=== PATIENT | female | born 1945 | race Caucasian/White ===

== ENCOUNTER 2019-03-15 09:08 | Observation (INO) | payer MEDICARE ==
--- NOTE | 2019-03-15 09:42 | ED ---
Neurological HPI - HPI Summary HPI Summary: This patient is a 74 year old F presenting to [facility] accompanied by her daughter and son-in-law with a chief complaint of confusion since 4 days ago. Patient reports dehydration, diarrhea and chills. Patient denies vomiting, fever, CP, SOB, blurry vision, MARCUM, or abd pain. The patient went to [place] 6 days ago and was given antibiotics for a UTI. Her daughter states that the medication was making her disoriented and they realized they gave her the wrong drug. She began taking her new antibiotic two days ago. She did have a MARCUM but it is resolved in the ED. The patient knows she is at the hospital, knows the president, knows the month, and knows her family. The patient had a fall on the way to the doctor about 3 weeks ago, she did not have any testing done at the time, and she denies head injury. PMHX Pacemaker. No PMHx CVA. Vitals in the room: HR 71 bpm, BP 121/67. - History of Current Complaint Chief Complaint: EDAltMentalStatus Stated Complaint: DHYDRATED,DISORIENTED PER PT DAUGHTER Time Seen by Provider: 03/15/19 09:32 Hx Obtained From: Patient, Family/Blood And Plasma Laboratory Assistant - daughter Onset/Duration: Sudden Onset, Started days ago Timing: Constant Pain Intensity: 0 Character: Confusion Associated Signs and Symptoms: Positive: Confusion, Diarrhea - Allergy/Home Medications Allergies/Adverse Reactions: Allergies Allergy/AdvReac Type Severity Reaction Status Date / Time sulfamethoxazole Allergy Swelling Verified 03/15/19 09:49 [From Bactrim] Of Face,Lips,& Throat trimethoprim [From Bactrim] Allergy Swelling Verified 03/15/19 09:49 Of Face,Lips,& Throat Home Medications: Home Medications Rosuvastatin Calcium 10 mg PO DAILY 03/15/19 [History Confirmed 03/15/19] PMH/Surg Hx/FS Hx/Imm Hx Endocrine/Hematology History: Reports: Hx Diabetes Cardiovascular History: Reports: Hx Hypertension - Cancer History Cancer Type, Location and Year: OVARIAN CANCER - Immunization History Date of Tetanus Vaccine: UTD Infectious Disease History: No Infectious Disease History: Denies: Traveled Outside the [place] in Last 30 Days - Family History Known Family History: Positive: Cardiac Disease - Social History Alcohol Use: None Substance Use Type: Reports: None Smoking Status (MU): Never Smoked Tobacco Review of Systems Positive: Chills. Negative: Fever Negative: Blurred Vision ENT: Other - dehydration Negative: Chest Pain Negative: Shortness Of Breath Positive: Diarrhea. Negative: Abdominal Pain, Vomiting Neurological: Other - confusion Negative: Headache All Other Systems Reviewed And Are Negative: Yes Physical Exam - Summary Physical Exam Summary: GENERAL: Patient is a well-developed and nourished female who is lying comfortable in the stretcher. Patient is not in any acute respiratory distress. HEAD AND FACE: Normocephalic EYES: PERRLA, EOMI x 2. EARS: Hearing grossly intact. MOUTH: Oropharynx within normal limits. NECK: Supple, trachea is midline, no adenopathy, no JVD, no carotid bruit. CHEST: Symmetric, no tenderness at palpation LUNGS: Clear to auscultation bilaterally. No wheezing or crackles. CVS: Regular rate and rhythm, S1 and S2 present, no murmurs or gallops appreciated. ABDOMEN: Soft, non-tender. Bowel sounds are normal. No abdominal abnormal pulsations. EXTREMITIES: Full ROM in all major joints, no edema, no cyanosis or clubbing. NEURO: Alert and oriented x 2, due to the amount of time it took her to answer question. No acute neurological deficits. Speech is normal and follows commands. SKIN: Dry and warm GCS: 14, altered mental status Triage Information Reviewed: Yes Vital Signs On Initial Exam: Initial Vitals Temp Pulse Resp BP Pulse Ox 97.9 F 81 18 110/73 100 03/15/19 09:15 03/15/19 09:15 03/15/19 09:15 03/15/19 09:15 03/15/19 09:15 Vital Signs Reviewed: Yes Diagnostics - Vital Signs Vital Signs Temp Pulse Resp BP Pulse Ox 03/15/19 09:15 97.9 F 81 18 110/73 100 - Laboratory Result Diagrams: 03/15/19 10:18 03/15/19 10:18 Lab Statement: Any lab studies that have been ordered have been reviewed, and results considered in the medical decision making process. - CT Brain CT Interpretation Completed By: Radiologist Summary of CT Findings: 1. NO EVIDENCE FOR ACUTE INTRACRANIAL ABNORMALITY. 2. FINDINGS SUGGESTIVE OF MILD TO MODERATE CHRONIC SMALL VESSEL ISCHEMIC CHANGES. ED physician has reviewed this report Course/Dx - Course Course Of Treatment: This patient is a 74 year old F presenting to [facility] accompanied by her daughter and son-in-law with a chief complaint of confusion since 4 days ago. Patient reports dehydration, diarrhea and chills. Patient denies vomiting, fever, CP, SOB, blurry vision, MARCUM, or abd pain. CT brain reveals, per radiologist, 1. NO EVIDENCE FOR ACUTE INTRACRANIAL ABNORMALITY. 2. FINDINGS SUGGESTIVE OF MILD TO MODERATE CHRONIC SMALL VESSEL ISCHEMIC CHANGES. ED physician has reviewed this radiology report. Bloodwork/UA obtained. In the ED course the patient was given IV fluids, Ondansetron, Potassium Chloride, and Ceftriaxone. We discussed patient care with davonte Kumar, and they recommended admission. - Diagnoses Provider Diagnoses: UTI (urinary tract infection), ROSIE (acute kidney injury), Altered mental status - Physician Notifications Discussed Care Of Patient With: Iron Saucedo Time Discussed With Above Provider: 11:47 Instructed by Provider To: Admit As Inpatient Discharge - Sign-Out/Discharge Documenting (check all that apply): Patient Departure - admission Patient Received Moderate/Deep Sedation with Procedure: No - Discharge Plan Condition: Fair Disposition: ADMITTED TO [facility] - Billing Disposition and Condition Condition: FAIR Disposition: Admitted to [facility] - Attestation Statements Document Initiated by Scribe: Yes Documenting Scribe: Rony Tolentino Provider For Whom Chelle is Documenting (Include Credential): Selma Vickers MD Scribe Attestation: Rony Gary, scribed for Selma Vickers MD on 03/15/19 at 1520. Scribe Documentation Reviewed: Yes Provider Attestation: The documentation as recorded by the Rony pollock accurately reflects the service I personally performed and the decisions made by , Selma Vickers MD Status of Scribe Document: Viewed
[2019-03-15] MEDS ORDERED: NS 0.9% 1000 ML** 1,000 ML IV ONE ×2 (09:47→11:22)
[2019-03-15] MEDS ORDERED: Ondansetron INJ* 2 MG/ML VIAL IV ONE (09:47)
[2019-03-15] MEDS ORDERED: cefTRIAXone(*) 1 GM in NS 0.9% 50 ML* 50 ML IVPB ONE (09:48)
[2019-03-15 10:27] LABS: ABS Basophils 0 10^3/ul (0-0.2); ABS Eosinophils 0 10^3/ul (0-0.6); ABS Lymphocytes 1.7 10^3/ul (1.0-4.8); ABS Monocytes 0.6 10^3/ul (0-0.8); ABS Neutrophils 3.3 10^3/ul (1.5-7.7); ABS Nucleated RBC 0 10^3/ul; Eosinophil % 0.7 %; Hematocrit 40 % (33-41); Hemoglobin 13.9 g/dL (12.0-16.0); Lymphocyte % 30.3 %; Mean Corpuscular HGB Conc 35 g/dL (31-36); Mean Corpuscular Hemoglobin 31 pg (27-31); Mean Corpuscular Volume 89 fL (80-97); Nucleated Red Blood Cells % 0.1; Platelet Count 167 10^3/uL (150-450); Red Blood Count 4.44 10^6 /uL (3.70-4.87); Red Cell Distribution Width 14 % (10.5-15); White Blood Count 5.7 10^3/uL (3.5-10.8)
[2019-03-15 10:45] LABS: Albumin 4.3 g/dL (3.2-5.2); Albumin/Globulin Ratio 1.2 (1-3); Calcium 9.7 mg/dL (8.6-10.3); EGFR African American 46.5 (>60); EGFR Non-African American 38.5 (>60); Globulin 3.5 g/dL (2-4); Potassium 3.3 mmol/L (3.5-5.0); Total Bilirubin 0.9 mg/dL (0.2-1.0); Total Protein 7.8 g/dL (6.4-8.9)
[2019-03-15] MEDS ORDERED: Potassium Chlor TAB* 20 MEQ TAB.ER PO ONE (11:33)
[2019-03-15 12:19] LABS: Urine Appearance Cloudy; Urine Bacteria 1+ (Absent); Urine Bilirubin Negative (Negative); Urine Blood 1+ (Negative); Urine Color Yellow; Urine Glucose Negative (Negative); Urine Ketones Negative (Negative); Urine Nitrite Negative (Negative); Urine Protein 2+(100 mg/dL) (Negative); Urine Red Blood Cell Trace(0-2/hpf) (Absent); Urine Specific Gravity 1.014 (1.010-1.030); Urine Squamous Epithelial Cell Present (Absent); Urine Urobilinogen Negative (Negative); Urine White Blood Cell Trace(0-5/hpf) (Absent)
[2019-03-15] MEDS ORDERED: Acetaminophen TAB* 325 MG PO PRN (13:18)
[2019-03-15] MEDS ORDERED: Dextrose 50% Syringe 50 ML* 25 GM/50 ML SYRINGE IV PUSH PRN (13:22)
[2019-03-15 13:37] LABS: Magnesium 1.7 mg/dL (1.9-2.7)
--- NOTE | 2019-03-15 15:11 | HP ---
HISTORY AND PHYSICAL: DATE OF ADMISSION: 03/15/19 PROVIDER: Caterina Asher NP. ATTENDING PHYSICIAN: Dr. Saucedo * (report dictated by Caterina Asher NP). PRIMARY CARE PROVIDER: Primary care doctor in [place]. CHIEF COMPLAINT: Weakness, confusion, dehydration. HISTORY OF PRESENT ILLNESS: Ms. Caceres is a 74-year-old female with a past medical history of coronary artery disease three-vessel, non-insulin dependent type 2 diabetes, hypertension, status post pacemaker placement, GERD, who was brought to the emergency department today by her daughter and son-in-law for concern for confusion, weakness, and dehydration. Ms. Caceres was recently diagnosed 6 days ago with urinary tract infection at [facility]. Three to four days prior to that, she reports she had a "GI bug" in which she had developed acute nausea, vomiting, diarrhea for 3 to 4 days, then presenting to [facility] this past Saturday, 6 days ago. She was diagnosed with urinary tract infection and a GI bug and was discharged home on ciprofloxacin. The patient and daughter report that the next day [facility] called her and said that she was given the wrong antibiotic and they sent in a prescription for Macrobid; however, the patient reports that she continued the ciprofloxacin for 4 days, only currently now having 2 to 3 doses of the Macrobid. She was found to have E. coli urinary tract infection on 03/09, which was resistant to ciprofloxacin and sensitive to Macrobid. The patient and daughter report that she has had increased confusion and weakness over the past 4 to 5 days, and this morning the patient continued to be confused as well as reporting little appetite and not a lot of fluid intake, and therefore she was driven to [facility] for further evaluation by her family. In the emergency department, the patient received 2 L of normal saline and 1 g of ceftriaxone IV. On my evaluation, the patient reports that she does feel much better; however, she continues to have generalized weakness. Per her family at the bedside, they also report that she is acting more like herself. The patient will be admitted overnight for continued IV antibiotics and IV fluids. She was also found to have acute kidney injury, thought to be secondary to dehydration. PAST MEDICAL HISTORY: 1. Coronary artery disease three-vessel with a history of CABG, status post pacemaker. 2. Non-insulin dependent type 2 diabetes. 3. Hypertension. 4. GERD. 5. Depression. 6. Dyslipidemia. 7. Moderate left ventricular dysfunction secondary to ischemic heart disease. HOME MEDICATIONS: 1. Metformin 500 mg p.o. b.i.d. 2. CoQ10 100 mg p.o. daily. 3. Spironolactone 12.5 mg p.o. daily. 4. Rosuvastatin 10 mg p.o. daily. 5. Paxil 20 mg p.o. daily. 6. Prilosec 20 mg p.o. daily. 7. [place]-3 fatty acids 1200 mg p.o. daily. 8. Losartan 25 mg p.o. daily. 9. Coreg 12.5 mg p.o. b.i.d. 10. Calcium carbonate with vitamin D3 one tab p.o. b.i.d. 11. Aspirin 81 mg p.o. daily. ALLERGIES: SULFAMETHOXAZOLE and TRIMETHOPRIM. FAMILY HISTORY: Reviewed and noncontributory. SOCIAL HISTORY: The patient currently lives in her own home, in which her daughter, grandson, and the grandson's girlfriend live with her. She lives in a trailer. She reports when she was in her 20s, she smoked for 1 year; however , denies a history of tobacco abuse; however, she is exposed to secondhand smoke in her home. Denies alcohol use. She lists her daughter Lana Keyes as her healthcare proxy. Her number is [phone]. REVIEW OF SYSTEMS: A 14-point review of systems was performed. All the pertinent positives and negatives are mentioned in the history of present illness. Otherwise are negative. PHYSICAL EXAMINATION GENERAL: A 74-year-old female, alert and oriented x3, in no acute distress. Family at bedside. VITAL SIGNS: Temperature 97.9, heart rate 60, respirations 16, O2 sat 99% on 2 L nasal cannula, and blood pressure 131/61. HEENT: Head is normocephalic, atraumatic. Pupils are equal and reactive to light. Oropharynx is clear. Multiple missing teeth. Dry mucous membranes. NECK: Supple. No JVD. LUNGS: Clear to auscultation bilaterally. Good aeration throughout. HEART: S1, S2. Regular rate and rhythm. No lower extremity edema noted. ABDOMEN: Soft, nontender, nondistended. Normal bowel sounds throughout. No CVA tenderness. EXTREMITIES: Warm, pink, dry. No clubbing, cyanosis, or edema noted. NEUROLOGIC: Alert and oriented x3. No focal deficits noted. Cranial nerves II through XII are grossly intact. DIAGNOSTIC STUDIES/LABORATORY DATA: Sodium 137, potassium 3.3, chloride 112, carbon dioxide 15, anion gap 10, BUN 59, creatinine 1.31, glucose 157, lactic acid 1.0, calcium 9.7, total bilirubin 0.90, AST 22, ALT 16, alkaline phosphatase 68, ammonia 53, total protein 7.8, albumin 4.3. WBC 5.7, RBC 4.44, HGB , MCV 89, MCH 31, MCHC 35, RDW 14, platelet count 167. Brain CT, impression: "No evidence for acute intracranial abnormality. Findings suggestive of [id number] chronic small vessel ischemic changes." ASSESSMENT AND PLAN: Ms. Caceres is a 74-year-old female with past medical history of coronary artery disease, status post coronary artery bypass graft, status post pacemaker, moderate left ventricular dysfunction secondary to ischemic heart disease, non-insulin dependent type 2 diabetes, hypertension, dyslipidemia, GERD, and obesity, who presents to the emergency department today with report of confusion, dehydration, and weakness. 1. Urinary tract infection. The patient's confusion is already improving after a dose of ceftriaxone and 2 L of fluid. I suspect the patient had a viral gastroenteritis starting around 03/05/19. She was diagnosed with urinary tract infection on 03/09/19 and was sent home on ciprofloxacin. It does seem around that time that she did get confused and it could be the ciprofloxacin versus untreated urinary tract infection. The patient has no signs of sepsis. She continues to have generalized weakness. We will continue ceftriaxone 1 g q.24 hours. Blood cultures have been sent. We will ask PT to evaluate the patient. 2. Acute renal failure. The patient's creatinine is 1.3. It appears to be above her baseline. Most likely, this is secondary to dehydration from the viral gastroenteritis and urinary tract infection. She was given 2 L of normal saline in the emergency department. We will repeat labs in the morning. The patient is drinking fluids. 3. Electrolyte abnormalities. The patient is found to have potassium at 3.3. She was given replacement in the emergency department. I will add on a magnesium level and repeat electrolytes in the morning. 4. History of coronary artery disease. Appears to be stable and asymptomatic. We will continue home medications of Coreg, losartan, aspirin, rosuvastatin. 5. Hypertension. Currently controlled. Continue home medications of losartan , Coreg, spironolactone. 6. Ogo-vawjneu-oiegssfat type 2 diabetes. Hold home metformin. Fingerstick blood glucose a.c. and h.s. with lispro sliding scale. 7. Depression. Continue Paxil. 8. Gastroesophageal reflux disease. Continue PPI. 9. DVT prophylaxis: Heparin subcutaneously. 10. Diet: Consistent carb. 11. Hospital status: Observation. 12. Code status: Full code. TIME SPENT: Approximately 60 minutes was spent on this admission. This case was discussed with Dr. Saucedo. CATERINA ASHER, COTTON TIER [id number]/CPS #: [id number] MARCIA
[2019-03-15] MEDS: Heparin VIAL(*) 5000 UNITS/ML VIAL (FIVE THOUSAND) SUBCUT SCH ×2 (16:30→22:52)
[2019-03-15] MEDS ORDERED: Magnesium Sulfate 2 GM IV* 2 GM/50 ML BAG IVPB ONE (16:30)
[2019-03-15] MEDS: Insulin LISPRO* 1 UNITS UNIT SUBCUT SCH ×2 (18:03→22:56)
[2019-03-15] MEDS: Carvedilol TAB* 6.25 MG PO SCH (22:53)
[2019-03-16] MEDS: Heparin VIAL(*) 5000 UNITS/ML VIAL (FIVE THOUSAND) SUBCUT SCH ×2 (06:40→14:16)
[2019-03-16 07:06] LABS: ABS Basophils 0 10^3/ul (0-0.2); ABS Eosinophils 0.1 10^3/ul (0-0.6); ABS Lymphocytes 1.7 10^3/ul (1.0-4.8); ABS Monocytes 0.5 10^3/ul (0-0.8); ABS Neutrophils 1.9 10^3/ul (1.5-7.7); ABS Nucleated RBC 0 10^3/ul; Eosinophil % 2.5 %; Hematocrit 37 % (33-41); Hemoglobin 13.1 g/dL (12.0-16.0); Magnesium 1.7 mg/dL (1.9-2.7); Mean Corpuscular HGB Conc 35 g/dL (31-36); Mean Corpuscular Hemoglobin 32 pg (27-31); Mean Corpuscular Volume 91 fL (80-97); Mean Platelet Volume 9.1 fL (7.4-10.4); Nucleated Red Blood Cells % 0.2; Platelet Count 154 10^3/uL (150-450); Potassium 3.3 mmol/L (3.5-5.0); Red Blood Count 4.06 10^6 /uL (3.70-4.87); Red Cell Distribution Width 13 % (10.5-15); White Blood Count 4.2 10^3/uL (3.5-10.8)
[2019-03-16 07:11] LABS: BUN/Creatinine Ratio 34.7 (8-20); EGFR African American 53.9 (>60); EGFR Non-African American 44.5 (>60)
[2019-03-16] MEDS: Insulin LISPRO* 1 UNITS UNIT SUBCUT SCH ×3 (07:56→16:39)
[2019-03-16] MEDS: Carvedilol TAB* 6.25 MG PO SCH (08:21)
[2019-03-16] MEDS ORDERED: Magnesium Sulfate 2 GM IV* 2 GM/50 ML BAG IVPB ONE (08:30)
[2019-03-16] MEDS ORDERED: cefTRIAXone(*) 1 GM in NS 0.9% 50 ML* 50 ML IVPB SCH (09:00)
[2019-03-16] MEDS ORDERED: Atorvastatin* 20 MG TAB PO SCH (09:00)
[2019-03-16] MEDS ORDERED: Pantoprazole TAB * 40 MG TAB PO SCH (09:00)
[2019-03-16] MEDS ORDERED: Spironolactone TAB* 25 MG PO SCH (09:00)
[2019-03-16] MEDS ORDERED: PARoxetine HCL TAB* 20 MG PO SCH (09:00)
[2019-03-16] MEDS ORDERED: Losartan TAB* 25 MG PO SCH (09:00)
[2019-03-16] MEDS ORDERED: Aspirin EC TAB* 81 MG TAB.EC PO SCH (09:00)
[2019-03-16] MEDS: KCL 20 MEQ/100 ML IVPREMIX* 20 MEQ/100 ML BAG IV SCH ×3 (10:55→18:20)
[2019-03-16 16:32] VITALS: BP 123/52
[2019-03-16 17:37] LABS: BUN/Creatinine Ratio 29.5 (8-20); Calcium 8.5 mg/dL (8.6-10.3); EGFR African American 51.9 (>60); EGFR Non-African American 42.9 (>60); Magnesium 2.1 mg/dL (1.9-2.7); Potassium 3.7 mmol/L (3.5-5.0)
--- NOTE | 2019-03-17 03:45 | DS ---
CC: Dr. Abhishek Francis * DISCHARGE SUMMARY: DATE OF ADMISSION: 03/15/19 DATE OF DISCHARGE: 03/16/19 PROVIDER: IRMA Kennedy. ATTENDING PHYSICIAN: Dr. Saucedo * (Dictated by IRMA Kennedy). PRIMARY CARE PROVIDER: Dr. Abhishek Francis. PRIMARY DIAGNOSIS: Urinary tract infection. SECONDARY DIAGNOSES: 1. Coronary artery disease. 2. Diabetes mellitus type 2. 3. Hypertension. 4. Gastroesophageal reflux disease. 5. Depression. 6. Dyslipidemia. 7. Left ventricular dysfunction secondary to ischemic heart disease. DIAGNOSTIC STUDIES: Brain CT on 03/15/19. Impression: 1. "No evidence for acute intracranial abnormality." 2. "Findings suggestive of vjcf-ah-cohqhmaf small vessel ischemic changes." PERTINENT LAB DATA: Urine culture on 03/15/19: No growth of clinically significant organisms. Lactic acid 1.0. White blood cell count 4.2. Potassium 3.3, 3.7 at discharge. Magnesium 1.7, 2.1 at discharge. DISCHARGE MEDICATIONS: None. Continued home medications: 1. Aspirin 81 mg daily. 2. Calcium carbonate/vitamin D3 1 tab p.o. b.i.d. 3. Carvedilol 12.5 mg p.o. b.i.d. 4. Losartan 25 mg p.o. daily. 5. Fish oil 20 mg p.o. daily. 6. Omeprazole 20 mg p.o. daily. 7. Paroxetine 20 mg p.o. daily. 8. Rosuvastatin 10 mg p.o. daily. 9. Spironolactone 12.5 mg p.o. daily. 10. Co-Q10 100 mg p.o. daily. 11. Metformin 500 mg p.o. b.i.d. HISTORY OF PRESENT ILLNESS/HOSPITAL COURSE: Galilea Caceres is a 74-year-old white female with a past medical history significant for coronary artery disease , diabetes mellitus type 2, and hypertension, who presented to the emergency department on 03/15/19, brought in by her daughter, who reported noticing confusion in the patient, in addition to weakness and dehydration. On 03/09/19 , the patient was seen at [facility] and diagnosed with UTI. At that time she was prescribed ciprofloxacin for treatment. She was then called 2 to 3 days later to be notified of the urine culture result and that ciprofloxacin would not adequately treat her UTI. She was then sent a prescription for Macrobid. However, it took her 2 to 3 days to fill the Macrobid , while she was continuing to take ciprofloxacin. Therefore, by day of admission , she had only been taking Macrobid for 2-3 days according to the patient's daughter. At the time of admission, she was given 2 L of normal saline and 1 g of IV ceftriaxone. She had a BUN to creatinine ratio of 44 and a potassium of 33, with a magnesium of 1.7. Her magnesium and potassium were replaced during her stay. Her urine culture from admission was found to be without growth, which is expected in the setting of having been treated for several days on Macrobid. The patient was without any signs of sepsis during her admission. On the date of discharge, the patient is alert and oriented. Her short and long-term memory are intact. She is without dysuria, hematuria, abdominal pain , low-back pain, flank pain, fevers or chills, chest pain or shortness of breath , palpitations or tachycardia. During her hospital stay physical therapy saw the patient and stated that she was near her functional baseline, though may benefit from outpatient physical therapy to address possible balance deficits. While the patient was inpatient, for treatment of her diabetes her home metformin was held and she was treated with Lispro sliding scale. For treatment of her coronary artery disease, her rosuvastatin, losartan, carvedilol , and aspirin were continued. For treatment of her left ventricular dysfunction , her spironolactone and carvedilol and losartan were continued. For treatment of her depression, her paroxetine was continued. REVIEW OF SYSTEMS: An 11-point review of systems was completed and all pertinent positives and negatives are as above in the HPI. All other systems are negative. PHYSICAL EXAMINATION: General: An obese elderly female, lying comfortably in hospital bed, appearing in no acute distress, daughter at bedside. Head: Normocephalic, atraumatic. ENT: Mucous membranes moist. Eyes: Sclerae anicteric, PERRL, and EOMI. Neck: Supple, without lymphadenopathy. Cardiac: Regular rate and rhythm, without murmurs, rubs or gallops. Respiratory: Lungs are clear to auscultation. Chest expansion is symmetrical. Abdomen: Soft, nontender, nondistended. No suprapubic tenderness to palpation. No CVA tenderness. Extremities: No clubbing or edema. Neurologic: The patient is alert and oriented x3. No focal deficits. DISCHARGE PLAN: Diet: Heart-healthy diet recommended, carb-consistent diet recommended. Activity: Return to normal activity as tolerated. The patient was advised to continue her prescribed Macrobid to completion. She was advised to follow up with her PCP in 4 to 7 days. She was advised to return to the emergency department if confusion returns, if she has abdominal pain or low-back pain or if she develops fevers or chills. At the time of followup with her primary care, it can be considered if outpatient referral to Physical Therapy is necessary, though it has been recommended by our inpatient physical therapist. For treatment of her coronary artery disease, she is to return to her home carvedilol, aspirin, and rosuvastatin. For treatment of her ischemic cardiomyopathy, she is to return to her spironolactone, losartan, and carvedilol. For treatment of her diabetes, she is to return to her home metformin. For treatment of her depression, she is to return to her home paroxetine. It is recommended at time of followup with primary care provider that magnesium and potassium be rechecked as patient was low at the time of admission, but did respond to electrolyte replacement and she was asymptomatic. CONDITION ON DISCHARGE: Stable. TIME SPENT: Approximately 50 minutes were spent on this discharge, approximately half of that time was spent at bedside. IRMA KENNEDY [id number]/[facility] #: [id number] [facility] CAMPUSJackelin
== END 2019-03-16 18:50 | disposition home or self-care (01) ==
LOC: ED 09:08 → MED 13:18
PROVIDERS: ADMIT Student in an Organized Health Care Education/Training Program; ATTEND Student in an Organized Health Care Education/Training Program
DX: N39.0 Urinary tract infection, site not specified (principal); I25.10 Atherosclerotic heart disease of native coronary artery without angina pectoris; E11.9 Type 2 diabetes mellitus without complications; K21.9 Gastro-esophageal reflux disease without esophagitis; F32.9 Major depressive disorder, single episode, unspecified; E78.5 Hyperlipidemia, unspecified; I51.9 Heart disease, unspecified; R41.0 Disorientation, unspecified; R19.7 Diarrhea, unspecified; Z88.2 Allergy status to sulfonamides; I25.9 Chronic ischemic heart disease, unspecified; I10 Essential (primary) hypertension; E86.0 Dehydration; Z79.82 Long term (current) use of aspirin
CPT/HCPCS: 36415; 70450; 80048; 80053; 81003; 81015; 82140; 83605; 83735; 85025; 87040; 87086; 94660; 96361; 96365; 96366; 96374; 99284; A9270-GY; G0378; G8978-GP-CJ; G8979-GP-CI; J0696; J1644; J2405; J3475; J3480